=== PATIENT | male | born 1945 | race Caucasian/White ===

== ENCOUNTER 2018-01-17 06:09 | Inpatient (IN) ==
[2018-01-17] MEDS ORDERED: Albuterol 2.5 MG/3 ML NEBULIZER IH ONE (06:25)
[2018-01-17] MEDS ORDERED: CeFAZolin Syr 2,000MG/20 ML 2,000 MG/20 ML SYRINGE IVPB ONE (06:25)
[2018-01-17] MEDS ORDERED: Plasma-Lyte A (PH 7.4) 1,000 ML IVC SCH (06:30)
[2018-01-17] MEDS ORDERED: Famotidine 20 MG/2 ML VIAL IVP ONE (06:39)
[2018-01-17] MEDS ORDERED: Pregabalin 75 MG CAPSULE PO ONE (06:39)
--- NOTE | 2018-01-17 06:42 | Anesthesia Evaluation PreOp ---
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: Denies Any Significant HX Other Medical History: Other (Osteoarthritis) Anesthesia History: No Prior Anesthetic Complications Alcohol Use: none Drug use: none Medications and Allergies Amlodipine Besylate [Amlodipine Besylate] 10 mg PO DAILY 12/16/17 [History] Atorvastatin Calcium [Lipitor] 20 mg PO DAILY 12/16/17 [History] Budesonide/Formoterol 160/4.5 [Symbicort 160/4.5] 2 puff IH BID 12/16/17 [ History] Montelukast [Singulair] 10 mg PO DAILY 12/16/17 [History] 3 Allergy/AdvReac Type Severity Reaction Status Date / Time No Known Allergies Allergy Verified 12/16/17 07:07 - Meds/Allergy Pre-op Review Medications Reviewed: Yes Allergies Reviewed: Yes Beta Blockers on Current Med List: No Anesthesia Results - Labs Laboratory Tests 12/27/17 12/27/17 12/27/17 12:30 12:30 12:30 Hgb 15.3 Hct 46.0 Plt Count 209 PT 10.8 INR 1.0 APTT 32.0 Sodium 139 Potassium 3.9 BUN 21 Creatinine 0.85 - Imaging EKG: pending Additional studies: Cardiac Cath from 2013 showed insignificant CAD, nl EF Anesthesia Exam O2 Sat Height 1.85 m Height 1.85 m Weight 108.409 kg Weight 108.409 kg O2 Sat by Pulse Oximetry 97 Vital Signs Temp Pulse Resp BP Pulse Ox 98.2 F 91 18 147/89 97 01/17/18 06:33 01/17/18 06:33 01/17/18 06:33 01/17/18 06:33 01/17/18 06:33 Height: 6'1 Weight: 239 lbs NPO (# of Hours): MN Pain Scale: 0 - HEENT Pupil (Motor): Pupils equal, EOMI Mallampati: II Teeth: Normal Oral Opening: Greater than 3 - SALT OPERATOR LOC: Oriented SALT OPERATOR Motor: Normal RUE, Normal LUE, Normal RLE, Normal LLE, Normal Face SALT OPERATOR Sensory: Normal: RUE, LUE, RLE, LLE, Face - Cardiac Rhythm: Regular Murmur: None JVD: No Carotid Bruit: No - Pulmonary Breath Sounds: bilateral Clear Respiratory Effort: Symmetrical Anesthesia Assess/Plan ASA Score: 3 (HTN COPD) Modified [place] Scale for Level of Consciousness: Cooperative, oriented, and tranquil Anesthetic Plan: Regional, MAC Monitoring Plan: Standard Monitors Recovery Plan: PACU (Discussed SAB with Adductor Canal Block/Fem Block and MAC , possible GA agrees to proceed)
--- NOTE | 2018-01-17 06:45 | History & Physical Report ---
Date of Encounter: 01/17/18 Time of Encounter: 06:44 24 Hour HP Update - Instructions Instructions: If the History and Physical is less than 30 days old and was completed prior to A.M. admission and or procedure and has NOT been updated on calendar day of procedure please complete this update prior to performing procedure. - Update Patient reports changes in Medical Condition: No Changes in examination, assessment, or condition: No Changes in Medication: No Preop tests/diagnostics Reviewed: Yes Surgery Remains Indicated: Yes Consent for Planned Operative Procedure(s) Verified: Yes - Pre-Operative Checklist Preoperative Checklist Indicated: No Prophylactic Antibiotic Ordered: Yes Is VTE Prophylaxis Indicated?: Yes
[2018-01-17] MEDS ORDERED: Ethanol\\Acetic Acid\\Na Ace\\Ben 1,000 ML IRRIG.SOLN IR ONE (07:07)
--- NOTE | 2018-01-17 07:15 | Discharge Summary ---
<Mlevina Pedro E - Last Filed: 01/17/18 07:12> Date of Encounter: 01/17/18 - Discharge Diagnosis (1) Osteoarthritis of left knee Priority: Primary Status: Chronic Qualifiers: Osteoarthritis type: unspecified Qualified Code(s): M17.12 - Unilateral primary osteoarthritis, left knee (2) HLD (hyperlipidemia) Priority: Secondary Status: Chronic Qualifiers: Hyperlipidemia type: unspecified Qualified Code(s): E78.5 - Hyperlipidemia , unspecified (3) HTN (hypertension) Priority: Secondary Status: Chronic Qualifiers: Hypertension type: unspecified Qualified Code(s): I10 - Essential (primary ) hypertension (4) COPD (chronic obstructive pulmonary disease) Priority: Secondary Status: Chronic Qualifiers: COPD type: unspecified COPD Qualified Code(s): J44.9 - Chronic obstructive pulmonary disease, unspecified (5) Status post total left knee replacement Priority: Primary Status: Acute - Discharge Medications Home Medications: Amlodipine Besylate 10 mg PO DAILY 12/16/17 [History] Atorvastatin Calcium [Lipitor] 20 mg PO DAILY 12/16/17 [History] Budesonide/Formoterol 160/4.5 [Symbicort 160/4.5] 2 puff IH BID 12/16/17 [ History] Montelukast [Singulair] 10 mg PO DAILY 12/16/17 [History] Aspirin Enteric Coated [Aspirin EC] 325 mg PO DAILY 21 Days #21 tablet. [Rx] Aspirin [Lo-Dose Aspirin EC] 81 mg PO DAILY 01/17/18 [History] OxyCODONE Immed Rel [Roxicodone 5 MG] 5 mg PO Q6HR PRN 7 Days #28 tablet [Rx] Ranitidine HCl [Heartburn Relief] 150 mg PO DAILY 01/17/18 [History] Allergies/Adverse Reactions: 3 Allergy/AdvReac Type Severity Reaction Status Date / Time No Known Allergies Allergy Verified 01/17/18 07:40 Primary care physician: Criss Jean - Patient Status Disposition: Home, Self-Care Condition: Good - Discharge Instructions Follow Up With: Criss Jean [Primary Care Provider] - - Hospital Course Hospital course: Mr. Sanchez is a 72 year old male - Time Spent with Patient Total time spent providing and/or coordinating discharge services: <Ibrahima Dorado Henry - Last Filed: 01/18/18 06:33> Date of Encounter: 01/18/18 Time of Encounter: 06:33 - Discharge Diagnosis (1) Obesity (BMI 30.0-34.9) Priority: Secondary Status: Chronic (2) Osteoarthritis of left knee Priority: Primary Status: Chronic Qualifiers: Osteoarthritis type: unspecified Qualified Code(s): M17.12 - Unilateral primary osteoarthritis, left knee (3) HLD (hyperlipidemia) Priority: Secondary Status: Chronic Qualifiers: Hyperlipidemia type: unspecified Qualified Code(s): E78.5 - Hyperlipidemia , unspecified (4) HTN (hypertension) Priority: Secondary Status: Chronic Qualifiers: Hypertension type: unspecified Qualified Code(s): I10 - Essential (primary ) hypertension (5) COPD (chronic obstructive pulmonary disease) Priority: Secondary Status: Chronic Qualifiers: COPD type: unspecified COPD Qualified Code(s): J44.9 - Chronic obstructive pulmonary disease, unspecified (6) Status post total left knee replacement Priority: Primary Status: Acute Primary care physician: Criss Jean - Patient Status Functional capacity at discharge: uses cane/walker Overall status at discharge: patient is progressing back to baseline - Hospital Course Hospital course: Mr. Sanchez is a 72 year old male Status post left total knee replacement The patient had an uneventful postoperative course. They received antibiotics and physical therapy and were discharged in stable condition. There will follow -up in the office in 2 weeks. - Time Spent with Patient Total time spent providing and/or coordinating discharge services:
[2018-01-17] MEDS ORDERED: *HR* FentaNYL (PF) 100 MCG/2 ML VIAL ONE (07:21)
[2018-01-17] MEDS ORDERED: Propofol 500 MG/50 ML INFUS..BTL ONE (07:22)
[2018-01-17] MEDS ORDERED: *HR* Midazolam HCl 2 MG/2 ML VIAL ONE (07:22)
[2018-01-17] MEDS ORDERED: *HR* Morphine Sulfate/PF 10 MG/10 ML AMPUL ONE (07:27)
[2018-01-17] MEDS ORDERED: *HR* Ropivacaine/PF 0.5% 20 ML VIAL ONE (07:28)
[2018-01-17] MEDS ORDERED: Ondansetron 4 MG/2 ML VIAL ONE (08:12)
[2018-01-17] MEDS ORDERED: Dexamethasone 4 MG/ML VIAL ONE (08:12)
--- NOTE | 2018-01-17 08:39 | Anesthesia Procedures ---
Date of Encounter: 01/17/18 Time of Encounter: 07:45 Procedures: Anesthesia - Epidural/Spinal Patient ID/Chart reviewed: Yes Patient examined: Yes Supplemental Oxygen Rate (L/min): 2 Sedation: Versed (mg): 1 Sedation: Fentanyl (mcg): 50 Site Prep: Aseptic Technique, Sterile prep and drape, Povidone-Iodine 1% Patient position: upright Local Anesthetic: Lidocaine 1% Amount of Local Anesthetic used: 2 Interspace Used: L2-L3 Blood: No CSF: Yes Paresthesia: No Spinal Needle Gauge: 22 (GOSO) Spinal Dose: 13.5mg + 200mcg duramorph Procedure: spinal placed uneventfully with the exception of the patient experiencing a vagal episode (HR 38) upon removal of spinal needle. patient layed supine, head slightly elevated, 0.4mg glycopyrollate administered, VSS with HR at 78 Vitals + FHT's: Vital Signs/O2 Sat/Glucose, Most Recent Temp Pulse Resp BP Pulse Ox 98.2 F 85 16 112/83 98 01/17/18 06:33 01/17/18 07:57 01/17/18 07:57 01/17/18 07:57 01/17/18 07:57
--- NOTE | 2018-01-17 08:41 | Anesthesia Procedures ---
Date of Encounter: 01/17/18 Time of Encounter: 07:50 Procedures: Anesthesia - Nerve Block Procedure Date: 01/17/18 Time: 07:50 Allergies/Adv Reactions: nka Pre-op Diagnosis: left knee OA Surgical Procedure: left TKA robot Checklist: Correct Patient Identifier, Correct procedure, History checked Correct side: Left Blood Thinner: No Monitor Applied: EKG, BP, Pulse Oximetry Supplemental Oxygen via Nasal Cannula (L/min): 4 Indication: Post Op Analgesia Pre-op Neuro Deficits: No Block Type: Femoral (30ml), Other (ipack 20ml) Catheter placed: No Sterile Technique: Yes Ultrasound used: Yes Anatomy identified: Yes Visual spread of Local: Yes Neuro Stimulation: Yes (femoral) Nerve Stimulator Range: 0.2 - 0.4 mA Blood on Needle Aspiration: No Smooth Injection of Local: Yes Pain with Injection of Local: No Prep: Chlorhexadine Needle: 22 x 50 mm Stimuplex, 21 x 100 mm Stimuplex Local: Ropivacaine, Other (decadron 10mg) Volume (cc): 50 Number of Attempts: 1 Complications: None/effective block Vitals: Vital Signs/O2 Sat/Glucose, Most Recent Temp Pulse Resp BP Pulse Ox 98.2 F 85 16 112/83 98 01/17/18 06:33 01/17/18 07:57 01/17/18 07:57 01/17/18 07:57 01/17/18 07:57
[2018-01-17] MEDS ORDERED: Ketorolac 30 MG/ML VIAL ONE (08:51)
[2018-01-17] MEDS ORDERED: *HR* Propofol 200 MG/20 ML VIAL IVP ONE (09:08)
--- NOTE | 2018-01-17 09:08 | Orthopedic Operative Note ---
Date of procedure: 01/17/18 Pre-op diagnosis: Left knee arthritis Post-op diagnosis: same Procedure: Procedure: Left robotic-assisted Total knee replacement Estimated blood loss: 250 cc Hardware: Metal and polyethylene replacement. [place] Femur:6 Tibia: 6 TS insert: 13 Patella: 39 Exam Under anesthesia: 5 degrees hyperextension 14 degrees varus as calculated by the robot full flexion and no instability Procedural Notes: Grade 3 arthritic changes patellofemoral joint and medial compartment. Operative procedure: The patient was brought to the operating room and placed on the operating room table. After general anesthesia was administered the operative knee was examined. Findings were noted in the exam under anesthesia. The operative extremity was prepped and draped in sterile surgical fashion. The patient received IV antibiotics prior to skin incision. A standard midline incision was made centered over the patella. The incision was made through the skin and subcutaneous tissue. A medial parapatellar tendon approach was performed. Care was taken to preserve tissue along the medial aspect of the patella. And to protect the patella tendon. The deep MCL was released off the medial tibia. The infra patella fat pad was excised. The patella was everted and cut was made at the level of the insertion of the quadriceps and patella tendon. The patella was sized to a 39 the guide was seated and the lug holes are drilled. Knee was brought into flexion. Patient noted to have grade 3 arthritic changes medial compartment and patellofemoral joint. Steinmann pins were placed in the tibia and the femur for the tibial and femoral arrays respectively. Checkpoints were also placed in the tibia and the femur for calculation purposes. The knee including the femur and the tibial registered. Osteophytes , ACL and PCL were excised at this point. Extension and flexion were assessed with a valgus stress components were adjusted on the computer to balance the knee. Femoral cuts were made first with robotic assistance, these included the anterior cut posterior cuts chamfer cuts. Tibial cut was then performed with robotic assistance as well. Bone fragments were removed, as well as the medial and lateral meniscus. The size 6 femoral guide was seated box cut was made lug holes are drilled. The size 6 tibial tray was seated and prepared with the fin cutter. Trial reduction with the 9 TS Mary Lou revealed hyperextension of 3 degree, 6 degrees varus and full flexion. No varus valgus instability. Trial reduction revealed excellent patella tracking. All trial components were removed all bony surfaces were irrigated. The Tibia was seated followed by the femur, The Mary Lou size 13 was seated and secured patella. Patient had similar findings for motion and stability. The knee was closed by the PA. The knee was then irrigated out with 2 L of pulse irrigation. The extensor mechanism was closed with #2 FiberWire suture and #2 PDS suture. The subcutaneous tissue was then irrigated and closed deep with #1 PDS suture superficially with 0 PDS suture and skin was closed with zip tie The patient was then placed in a sterile dressing and a postoperative brace extubated and transferred to recovery room in stable condition. Anesthesia: spinal Surgeon: Ibrahima Dorado Was there an social science research assistant present: Yes Tankage Grinder Operator: Rita Caicedo Estimated blood loss (cc): 250 Condition: stable Disposition: PACU
[2018-01-17 10:16] LABS: Hematocrit 39.1 % (37.5-50.1)
--- NOTE | 2018-01-17 10:16 | Anesthesia Evaluation Post Op ---
Date of Encounter: 01/17/18 Time of Encounter: 10:14 - Vital Signs Vital Signs: Vital Signs/O2 Sat/Glucose, Most Current Temp Pulse Resp BP Pulse Ox 01/17/18 10:08 97.3 F L 73 16 117/72 96 01/17/18 09:58 71 16 109/73 96 01/17/18 09:48 81 16 112/72 94 01/17/18 09:38 97.6 F 79 12 104/76 95 01/17/18 07:57 85 16 112/83 98 01/17/18 07:52 61 16 88/66 97 01/17/18 07:50 40 16 81/53 99 01/17/18 07:47 83 16 145/92 98 01/17/18 07:42 86 16 139/89 99 01/17/18 07:37 92 16 160/100 99 01/17/18 07:32 96 18 150/93 98 01/17/18 07:30 95 18 157/96 98 01/17/18 07:14 18 147/89 97 01/17/18 06:33 98.2 F 91 18 147/89 97 - Lungs Lungs: Clear Ascult./Percussion - Airway Airway: Non-obstructed - Cardiovascular Regular Rate, Baseline Rhythm - Mental Status Mental Status: Alert & Oriented, Answers Appropriately - Pain Pain Scale: 0 - Nausea Vomiting Nausea Vomiting: Not Present - Hydration Hydration: Ice chips (declines), Has not voided - Discharge PostOp Status: Transfer Patient to floor Anes Supervising Prov Stmt: Pt seen/evaluated, VSS and pt has met criteria for discharge to floor. - MD Felipe
[2018-01-17] MEDS ORDERED: Ringers Solution, Lactated 1,000 ML IVC SCH (10:38)
[2018-01-17] MEDS ORDERED: Aspirin Enteric Coated 81 MG Tablet PO SCH (10:38)
[2018-01-17] MEDS ORDERED: Ondansetron 4 MG/2 ML VIAL IVP PRN (10:38)
[2018-01-17] MEDS ORDERED: Naloxone 0.4 MG/ML INJ IVP PRN (10:38)
[2018-01-17] MEDS ORDERED: Sennosides 8.6 MG TABLET PO PRN (10:38)
[2018-01-17] MEDS ORDERED: Temazepam 15 MG CAPSULE PO PRN (10:38)
[2018-01-17] MEDS ORDERED: amLODIPine 5 MG TABLET PO SCH (10:38)
[2018-01-17] MEDS ORDERED: MOM Conc 10 ML UD.LIQ PO PRN (10:38)
[2018-01-17] MEDS: Budesonide/Formoterol 160/4.5 MDI IH SCH ×2 (10:49→21:51)
--- NOTE | 2018-01-17 13:25 | Electrocardiograph Report ---
[place] [employer] 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
[2018-01-17] MEDS: CeFAZolin Premix DUPLEX 2,000 MG/50 ML BAG IVPB SCH ×2 (15:34→23:02)
[2018-01-17] MEDS ORDERED: Famotidine 20 MG TABLET PO SCH (19:12)
[2018-01-18 06:33] VITALS: BP 128/72
--- NOTE | 2018-01-18 06:34 | Orthopedics Progress Note ---
Date of Encounter: 01/18/18 Time of Encounter: 06:34 - Assessment and Plan (1) Obesity (BMI 30.0-34.9) Current Visit: Yes Status: Chronic (2) Osteoarthritis of left knee Current Visit: Yes Status: Chronic Qualifiers: Osteoarthritis type: unspecified Qualified Code(s): M17.12 - Unilateral primary osteoarthritis, left knee (3) HLD (hyperlipidemia) Current Visit: Yes Status: Chronic Qualifiers: Hyperlipidemia type: unspecified Qualified Code(s): E78.5 - Hyperlipidemia , unspecified (4) HTN (hypertension) Current Visit: Yes Status: Chronic Qualifiers: Hypertension type: unspecified Qualified Code(s): I10 - Essential (primary ) hypertension (5) COPD (chronic obstructive pulmonary disease) Current Visit: Yes Status: Chronic Qualifiers: COPD type: unspecified COPD Qualified Code(s): J44.9 - Chronic obstructive pulmonary disease, unspecified (6) Status post total left knee replacement Current Visit: Yes Status: Acute Subjective Interval history: Patient was seen this morning doing well without complaints. Afebrile vital signs stable. Operative extremity: Neurovascularly intact Dressing bloody, changed today Calves nontender Assessment and plan: Continue with postoperative care, discharged today postop hematocrit 39 Objective Vital signs: Vital Signs Temp Pulse Resp BP Pulse Ox 01/18/18 06:32 97.8 F 77 16 128/72 96 01/18/18 04:06 97.9 F 77 18 131/80 96 01/17/18 23:14 97.7 F 90 16 137/84 97 01/17/18 21:52 17 92 01/17/18 19:06 97.9 F 89 16 124/78 94 01/17/18 14:34 97.8 F 83 16 116/75 94 01/17/18 12:54 97.8 F 73 16 119/75 95 01/17/18 12:25 97.8 F 75 19 120/75 97 01/17/18 11:35 98.3 F 77 16 123/75 98 01/17/18 10:59 96 01/17/18 10:50 16 96 01/17/18 10:40 97.4 F L 76 16 118/76 100 01/17/18 10:28 76 16 113/76 96 01/17/18 10:18 71 16 112/78 96 01/17/18 10:08 97.3 F L 73 16 117/72 96 01/17/18 09:58 71 16 109/73 96 01/17/18 09:48 81 16 112/72 94 01/17/18 09:38 97.6 F 79 12 104/76 95 01/17/18 07:57 85 16 112/83 98 01/17/18 07:52 61 16 88/66 97 01/17/18 07:50 40 16 81/53 99 01/17/18 07:47 83 16 145/92 98 01/17/18 07:42 86 16 139/89 99 01/17/18 07:37 92 16 160/100 99 01/17/18 07:32 96 18 150/93 98 01/17/18 07:30 95 18 157/96 98 01/17/18 07:14 18 147/89 97 Intake and Output 01/17/18 01/17/18 01/18/18 15:59 23:59 07:59 Intake Total 840 / 840 100 / 100 Output Total 250 / 250 0 / 0 600 / 600 Balance -250 / -250 840 / 840 -500 / -500 Intake: IV Fluids 50 / 50 50 / 50 Ancef Premix DUPLEX 2,000 mg In 50 / 50 50 / 50 50 ml @ 100 mls/hr IVPB Q8HR [facility] Rx#:[id number] Oral 790 / 790 50 / 50 Output: Urine 0 / 0 0 / 0 50 / 50 Estimated Blood Loss 250 / 250 Straight Cath 550 / 550 Other: Meal Lunch Dinner Percent of Meal Consumed 95% 100% - Labs CBC & BMP: 01/17/18 09:52 - VTE Documentation of Mechanical Device: Venous foot pump, device Consult Discharge Plan - Plan Referrals: Criss Jean [Primary Care Provider] -
[2018-01-18 06:50] LABS: BUN/Creatinine Ratio 33 (6-26); Blood Urea Nitrogen 29 mg/dL (8-23); Calcium 8.9 mg/dL (8.6-10.3); Carbon Dioxide 28 mEq/L (23-29); Chloride 103 mEq/L (98-107); Glucose 181 mg/dL (70-105); Osmolality,Calculated 294 (280-300); Potassium 4.1 mEq/L (3.5-5.1); Sodium 137 mEq/L (136-145); eGFR For African Americans > 60 (> 60); eGFR For Non-African Americans > 60 (> 60)
[2018-01-18] MEDS ORDERED: *HR* Enoxaparin 30 MG/0.3 ML SYRINGE SQ SCH (06:50)
[2018-01-18] MEDS ORDERED: *HR* OxyCODONE Immed Rel 5 MG TABLET PO PRN ×2 (06:50)
[2018-01-18 06:52] LABS: Hematocrit 35.9 % (37.5-50.1)
[2018-01-18] MEDS: Budesonide/Formoterol 160/4.5 MDI IH SCH (07:21)
[2018-01-18] MEDS ORDERED: Famotidine 20 MG TABLET PO SCH (09:00)
== END 2018-01-18 09:56 | disposition home or self-care (01) | DRG 470 ==
LOC: SAMDAY 06:09 → 3NENU 10:41
PROVIDERS: ADMIT Orthopaedic Surgery; ATTEND Orthopaedic Surgery